=== PATIENT | male | born 2000 | race Caucasian/White ===

== ENCOUNTER 2023-06-20 19:29 | Emergency (ER) | payer SELFPAY ==
[2023-06-20] MEDS: Lidocaine 1% 5 ML VIAL INJECT STA (20:29)
== END 2023-06-20 21:32 | disposition home or self-care (01) ==
LOC: MW.ED 19:29
DX: S81.011A Laceration without foreign body, right knee, initial encounter (principal); Z75.8 Other problems related to medical facilities and other health care; W26.0XXA Contact with knife, initial encounter
CPT/HCPCS: 12001; 99282; 99283; J3490